=== PATIENT | female | born 1970 | race Caucasian/White ===

== ENCOUNTER → 2018-06-06 08:13 | Outpatient (CLI) | payer OTHER, SELFPAY ==
--- NOTE | 2018-06-06 08:16 | BI_ITS ---
MAMMOGRAPHY - BILATERAL SCREENING REASON FOR EXAM: Female, 48 years old. Routine annual screening examination. PERTINENT HISTORY: Grandmother with breast cancer. TECHNIQUE: Digital bilateral breast brandon (3D mammographic acquisition) in the CC and MLO projections. 2-D mediolateral oblique (MLO) and craniocaudad (CC) views of both breasts were obtained. CAD: Full Field Digital Mammography with Computer Added Detection was performed. COMPARISON: Comparison is made with prior examination dated January 24, 2017 and November 15, 2015. FINDINGS: Breast Composition: The breasts are extremely dense, which lowers the sensitivity of mammography. There are no dominant masses or suspicious calcifications. No other significant abnormalities are identified. There has been no significant change since the prior study. BI/SCREENING MAMM (CAD), BILAT IMPRESSION: Stable bilateral screening mammogram. Yearly follow-up mammogram recommended. (A) ASSESSMENT CATEGORY: BIRADS Category 1: Negative. A letter regarding these results will be sent to the patient by the facility within 30 days. Approximately 10% of breast cancers are not detected by mammography. A normal mammogram should not delay biopsy of a clinically suspicious abnormality. [id number] Electronically Signed: Rafael Mueller MD at 10:17 EST Tel [phone], Service support ,
--- OUTSIDE RECORDS SUMMARY | 2018-08-01 08:03 | XMS RPT_ITS ---
:1970 Author Organization [facility] Care Team Providers Name Role Phone Sarah Mcrae Attending Unavailable Sarah Mcrae Referring Unavailable Bora Quintanilla Primary Care Unavailable Referred, Self Attending Unavailable Bora Quintanilla Primary Care Unavailable PROBLEMS PROBLEMS No Problem Records FoundPROCEDURES PROCEDURES No Procedure Records FoundRESULTS RESULTS SCREENING MAMM (CAD), Observed: 06/06/2018 Status: F Source: [facility] 8:16 AM [facility] REPOSITORY [facility] [address] [place] [address] SCREENING MAMM (CAD), BILAT MR#: [id number] Acct: [id number] Name: JENIFER GAN Rep #: [id number] : 1970 F 48 From: Rafael Mueller MD PCP: Bora Quintanilla MD Status: REG CLI Study: SCREENING MAMM (CAD), BILAT Date of Exam: 06/06/18 Exam# [id number] Ordering Dr: Sarah Mcrae MD MAMMOGRAPHY - BILATERAL SCREENING REASON FOR EXAM: Female, 48 years old. Routine annual screening examination. PERTINENT HISTORY: Grandmother with breast cancer. TECHNIQUE: Digital bilateral breast brandon (3D mammographic acquisition) in the CC and MLO projections. 2-D mediolateral oblique (MLO) and craniocaudad (CC) views of both breasts were obtained. CAD: Full Field Digital Mammography with Computer Added Detection was performed. COMPARISON: Comparison is made with prior examination dated January 24, 2017 and November 15, 2015. FINDINGS: Breast Composition: The breasts are extremely dense, which lowers the sensitivity of mammography. There are no dominant masses or suspicious calcifications. No other significant abnormalities are identified. There has been no significant change since the prior study. BI/SCREENING MAMM (CAD), BILAT IMPRESSION: Stable bilateral screening mammogram. Yearly follow-up mammogram recommended. (A) ASSESSMENT CATEGORY: BIRADS Category 1: Negative. A letter regarding these results will be sent to the patient by the facility within 30 days. Approximately 10% of breast cancers are not detected by mammography. A normal mammogram should not delay biopsy of a clinically suspicious abnormality. [id number] Electronically Signed: Rafael Mueller MD at 10:17 EST Tel [phone], Service support , CC: Sarah Mcrae MD; Bora Quintanilla MD Sap Consultant: Signed ALLERGIES ALLERGIES No Allergies Records FoundENCOUNTERS ENCOUNTERS ADMIT/DISCHARGE ACCOUNT ADMITTING ENCOUNTER LOCATION SOURCE NUMBER CLASS 06/12/2018 [id number] [facility] [place] 0 [facility] ing:MASS Repository 06/06/2018 [id number] [facility] [place] [facility] ing:OPBI Repository PAYERS PAYERS ENCOUNTER GUARANTOR PAYER SUBSCRIBER SOURCE 06/12/2018 CARIDAD [facility] NOT GIVENUNK [place] [id number] Insurance:SELF PAY [facility] [id number]: Number: Effective Repository Date:2018-05-28 () 06/06/2018 CARIDAD Arreg[facility] Primary CARIDAD [id number] Insurance:SUMMA KATHYOB: [facility] [place] [facility]: [id number] [id number]: [id number] Repository Date:[id number] [address]TQ: 06/06/2018 Secondary NOT GIVENBHAVIN [place] Insurance:SELF PAY [facility] Number: Effective Repository Date:2017-11-16
== END ==
PROVIDERS: Family Provider Family Medicine; PCP Family Medicine; Referring Provider Obstetrics & Gynecology; Visit Provider Obstetrics & Gynecology
DX: Z12.31 Encounter for screening mammogram for malignant neoplasm of breast (principal)
CPT/HCPCS: 77063; 77067

== ENCOUNTER → 2018-11-28 | Outpatient (CLI) | payer OTHER, SELFPAY ==
[2018-11-28 07:57] LABS: Hematocrit 40.9 % (37-47); Hemoglobin 13.7 g/dl (12.0-15.0); Mean Corp Hgb Conc 33.5 g/gl (32-36); Mean Corpuscular Hgb 28.8 pg (27.0-32.0); Mean Corpuscular Volume 86.1 fL (81-99); Mean Platelet Vol. 10.1 fl (6.2-12.0); Platelet Count 239 K/mm3 (150-450); RBC Distribution Width CV 12.1 % (11.6-14.6); RBC Distribution Width SD 38.1 fl (35.1-43.9); Red Blood Count 4.75 M/mm3 (4.2-5.4); White Blood Count 5.8 K/mm3 (4.4-11.0)
[2018-11-28 07:59] LABS: Scan Indicated on CBC? Y/N NO
[2018-11-28 08:08] LABS: Hemoglobin A1c 5.4 % (4.2-6.3)
[2018-11-28 08:23] LABS: Cholesterol 211 mg/dL (200); Estradiol < 11.0 pg/mL; Free T3 2.6 pg/mL (2.18-3.98); Glucose 79 mg/dL (74-106); High Density Lipoprotein 115 mg/dL; T4 Free Direct 0.77 ng/dL (0.76-1.46); Thyroid Stim Hormone (TSH) 1.46 uIU/mL (0.358-3.74); Triglycerides 59 mg/dL; Very Low Density Lipoprotein 12 mg/dL (5-40)
[2018-11-29 10:11] LABS: DHEA Sulfate 151.4 ug/dL (41.2-243.7)
== END | disposition home or self-care (01) ==
LOC: LAB.FUTURE 07:12
PROVIDERS: Family Provider Family Medicine; PCP Family Medicine; Referring Provider Obstetrics & Gynecology; Visit Provider Obstetrics & Gynecology
DX: R53.83 Other fatigue (principal)
CPT/HCPCS: 36415; 80061; 82306; 82533; 82627; 82670; 82947; 83036; 83525; 84144; 84403; 84439; 84443; 84481; 85027; 82626

== ENCOUNTER → 2020-04-07 09:26 | Outpatient (CLI) | payer OTHER, SELFPAY ==
[2020-04-07 10:43] LABS: Anion Gap 2 (5-15); BUN 19 mg/dL (7-18); BUN/Creat Ratio 21.3 RATIO (10-20); Calcium,Total 8.9 mg/dL (8.5-10.1); Chloride 106 mmol/L (98-107); Cholesterol 208 mg/dL (200); Creatinine, Serum 0.89 mg/dL (0.55-1.02); EST Glomerular Filtration Rate 71 mL/min (>60); Est Glom Filt Rate - Afr Amer 86 mL/min (>60); Glucose 80 mg/dL (74-106); High Density Lipoprotein 101 mg/dL; Potassium 3.8 mmol/L (3.5-5.1); Sodium Level 139 mmol/L (136-145); Thyroid Stim Hormone (TSH) 1.29 uIU/mL (0.358-3.74); Triglycerides 77 mg/dL; Very Low Density Lipoprotein 15 mg/dL (5-40)
[2020-04-07 10:52] LABS: Vitamin D,25 Hydroxy 42.2 ng/mL
== END ==
PROVIDERS: PCP Family Medicine; Referring Provider Family Medicine; Visit Provider Family Medicine
DX: Z00.00 Encounter for general adult medical examination without abnormal findings (principal); E55.9 Vitamin D deficiency, unspecified; Z13.220 Encounter for screening for lipoid disorders
CPT/HCPCS: 36415; 80048; 80061; 82306; 84443

== ENCOUNTER → 2020-09-22 13:40 | Outpatient (CLI) | payer OTHER, SELFPAY ==
--- NOTE | 2020-09-22 13:41 | BI_ITS ---
MAMMOGRAPHY - BILATERAL SCREENING REASON FOR EXAM: Female, 50 years old. Routine annual screening examination. PERTINENT HISTORY: Grandmother with breast cancer. TECHNIQUE: Digital bilateral breast haroldo (3D mammographic acquisition) in the CC and MLO projections. 2-D mediolateral oblique (MLO) and craniocaudad (CC) views of both breasts were obtained. CAD: Full Field Digital Mammography with Computer Added Detection was performed. COMPARISON: Comparison is made with prior study dated 06/06/2018 and 01/24/2017. FINDINGS: Breast Composition: The breasts are extremely dense, which lowers the sensitivity of mammography. There are no dominant masses or suspicious calcifications. No other significant abnormalities are identified. There has been no significant change since the prior study. BI/SCRN MAMM (CAD)W/HAROLDO BILAT IMPRESSION: Stable bilateral screening mammogram. Yearly follow-up mammogram recommended. (A) ASSESSMENT CATEGORY: BIRADS Category 1: Negative. A letter regarding these results will be sent to the patient by the facility within 30 days. Approximately 10% of breast cancers are not detected by mammography. A normal mammogram should not delay biopsy of a clinically suspicious abnormality. [id number] Electronically Signed: Rafael Mueller MD at 14:50 EDT , Service support ,
== END ==
PROVIDERS: PCP Family Medicine; Referring Provider Family Medicine; Visit Provider Family Medicine
DX: Z00.00 Encounter for general adult medical examination without abnormal findings (principal); Z12.31 Encounter for screening mammogram for malignant neoplasm of breast
CPT/HCPCS: 77063; 77067

== ENCOUNTER 2020-09-23 16:58 | Outpatient (RCR) | payer OTHER, SELFPAY ==
[2020-09-23] MEDS: COVID-19 VACC, MRNA(PFIZER)/PF 30 MCG/0.3 ML SYRINGE IM (14:52)
[2020-10-14] MEDS: COVID-19 VACC, MRNA(PFIZER)/PF 30 MCG/0.3 ML SYRINGE IM (14:35)
== END 2020-09-23 23:59 ==
LOC: IMMUN 16:58
PROVIDERS: PCP Family Medicine; Visit Provider Family Medicine
DX: Z23 Encounter for immunization (principal)
CPT/HCPCS: 0001A; 0002A; 91300

== ENCOUNTER → 2021-02-25 | Outpatient (CLI) | payer OTHER, SELFPAY ==
[2021-03-01 16:51] LABS: HPV APTIMA, High Risk Negative (Negative)
== END | disposition home or self-care (01) ==
LOC: LABSPEC 15:32
PROVIDERS: PCP Family Medicine; Referring Provider Obstetrics & Gynecology; Visit Provider Obstetrics & Gynecology
DX: Z12.4 Encounter for screening for malignant neoplasm of cervix (principal)
CPT/HCPCS: 87624; 88175; G0145

== ENCOUNTER → 2022-04-25 | Outpatient (CLI) | payer OTHER, SELFPAY | END | disposition home or self-care (01) | LOC: LABSPEC 15:29 | PROVIDERS: PCP Family Medicine; Referring Provider Nurse Practitioner Women's Health; Visit Provider Nurse Practitioner Women's Health | DX: R30.0 Dysuria (principal) | CPT/HCPCS: 87086; 87088; 87186 ==

== ENCOUNTER → 2022-04-26 | Outpatient (CLI) | payer OTHER, SELFPAY ==
[2022-04-26 15:55] LABS: Absolute Lymphocyte Count 2.66 X10^3/uL (0.83-4.51); Absolute Neutrophil Count 4.8 X10^3/uL (2.0-7.7); Basophil# 0.03 X10^3/uL; Basophil% 0.4 % (0-1); Eosinophil# 0.28 X10^3/uL; Eosinophils% 3.3 % (0-5); Hematocrit 37.8 % (37-47); Hemoglobin 12.6 g/dL (12.0-15.0); Lymphocyte # 2.66 X10^3/ul (0.83-4.51); Lymphocyte % 31.3 % (19-41); Mean Corp Hgb Conc 33.3 g/dL (32-36); Mean Corpuscular Hgb 29.6 pg (27.0-32.0); Mean Corpuscular Volume 88.9 fL (81-99); Mean Platelet Vol. 9.8 fl (6.2-12.0); Monocyte# 0.69 X10^3/uL; Monocyte% 8.1 % (0-10); NRBC Flagged by Analyzer 0 % (0-5); Neutrophil # 4.81 X10^3/uL (2.7-7.7); Neutrophil % 56.5 % (47-70); Platelet Count 273 K/mm3 (150-450); RBC Distribution Width CV 12.1 % (11.6-14.6); RBC Distribution Width SD 39.2 fl (35.1-43.9); Red Blood Count 4.25 M/mm3 (4.2-5.4); White Blood Count 8.5 K/mm3 (4.4-11.0)
[2022-04-26 16:08] LABS: International Normalized Ratio 0.9; Prothrombin Time (Protime)PT. 12.1 SECONDS (11.7-14.9)
== END | disposition home or self-care (01) ==
LOC: LAB 15:11
PROVIDERS: PCP Family Medicine; Referring Provider Family Medicine; Visit Provider Family Medicine
DX: T14.8XXA Other injury of unspecified body region, initial encounter (principal)
CPT/HCPCS: 36415; 85025; 85610; 85730

== ENCOUNTER → 2022-10-06 | Outpatient (CLI) | payer OTHER, SELFPAY ==
--- NOTE | 2022-10-06 13:25 | BI_ITS ---
MAMMOGRAPHY - BILATERAL SCREENING REASON FOR EXAM: Female, 52 years old. Routine annual screening examination. PERTINENT HISTORY: Grandmother with breast cancer. TECHNIQUE: Digital bilateral breast haroldo (3D mammographic acquisition) in the CC and MLO projections. 2-D mediolateral oblique (MLO) and craniocaudad (CC) views of both breasts were obtained. CAD: Full Field Digital Mammography with Computer Added Detection was performed. COMPARISON: Comparison is made with prior study of September 22, 2020 and June 06, 2018. FINDINGS: Breast Composition: The breasts are extremely dense, which lowers the sensitivity of mammography. There are no dominant masses or suspicious calcifications. No other significant abnormalities are identified. There has been no significant change since the prior study. BI/SCRN MAMM (CAD)W/HAROLDO BILAT IMPRESSION: Stable bilateral screening mammogram. Yearly follow-up mammogram recommended. (A) ASSESSMENT CATEGORY: BIRADS Category 1: Negative. A letter regarding these results will be sent to the patient by the facility within 30 days. Approximately 10% of breast cancers are not detected by mammography. A normal mammogram should not delay biopsy of a clinically suspicious abnormality. [id number] Electronically Signed: Rafael Mueller MD at 14:37 EDT ,
== END | disposition home or self-care (01) ==
PROVIDERS: PCP Family Medicine; Visit Provider Obstetrics & Gynecology
DX: Z12.31 Encounter for screening mammogram for malignant neoplasm of breast (principal); Z80.3 Family history of malignant neoplasm of breast; N39.0 Urinary tract infection, site not specified
CPT/HCPCS: 77063; 77067; 87086; 87088

== ENCOUNTER → 2023-05-17 | Outpatient (CLI) | payer OTHER, SELFPAY ==
[2023-05-17 06:59] LABS: Hematocrit 41.9 % (37-47); Hemoglobin 13.3 g/dL (12.0-15.0); Mean Corp Hgb Conc 31.7 g/dL (32-36); Mean Corpuscular Hgb 28.5 pg (27.0-32.0); Mean Corpuscular Volume 89.9 fL (81-99); Mean Platelet Vol. 10.2 fl (6.2-12.0); Platelet Count 237 K/mm3 (150-450); RBC Distribution Width SD 39.8 fl (35.1-43.9); Red Blood Count 4.66 M/mm3 (4.2-5.4); White Blood Count 6.4 K/mm3 (4.4-11.0)
[2023-05-17 07:33] LABS: ALB/GLOB Ratio 1.2 RATIO (0.9-2.4); AST(SGOT) 21 U/L (15-37); Alanine Aminotransfer ALT/SGPT 22 U/L (13-56); Albumin, Serum 3.9 g/dL (3.2-5.0); Alkaline Phosphatase 58 U/L (45-117); Anion Gap 3 (5-15); BUN 20 mg/dL (7-18); BUN/Creat Ratio 21.5 RATIO (10-20); Calcium,Total 8.8 mg/dL (8.5-10.1); Chloride 107 mmol/L (98-107); Cholesterol 226 mg/dL (200); Creatinine, Serum 0.93 mg/dL (0.55-1.02); EST Glomerular Filtration Rate 67 mL/min (>60); Est Glom Filt Rate - Afr Amer 81 mL/min (>60); Ferritin 73 ng/mL (8-252); Globulin 3.2 g/dL (2.2-4.2); Glucose 86 mg/dL (74-106); High Density Lipoprotein 117 mg/dL; Potassium 3.9 mmol/L (3.5-5.1); Protein, Total 7.1 g/dL (6.4-8.2); Sodium Level 139 mmol/L (136-145); Thyroid Stim Hormone (TSH) 1.81 uIU/mL (0.358-3.74); Triglycerides 70 mg/dL; Very Low Density Lipoprotein 14 mg/dL (5-40)
[2023-05-17 08:14] LABS: Vitamin D,25 Hydroxy 52.8 ng/mL
== END | disposition home or self-care (01) ==
LOC: LAB 06:20
PROVIDERS: PCP Family Medicine; Referring Provider Family Medicine; Visit Provider Family Medicine
DX: Z00.00 Encounter for general adult medical examination without abnormal findings (principal); E55.9 Vitamin D deficiency, unspecified; Z13.29 Encounter for screening for other suspected endocrine disorder
CPT/HCPCS: 36415; 80053; 80061; 82306; 82728; 84443; 85027

== ENCOUNTER → 2023-07-17 | Outpatient (CLI) | payer OTHER, SELFPAY ==
--- NOTE | 2023-07-17 08:20 | BD_ITS ---
STUDY: DUAL ENERGY X-RAY ABSORPTIOMETRY / DXA REASON FOR EXAM: Female, 53 years old. [id number] TECHNIQUE: Bone Mineral Density (BMD) measurements of lumbar spine and bilateral hips were obtained. COMPARISON: None. FINDINGS: Lumbar Spine (L1-L4): g/cm2 (0.799) / T-score (-2.3) / Z-score (-1.3) Findings are suggestive of osteopenia with a high fracture risk. Left Femur Total: g/cm2 (0.810) / T-score (-1.1) / Z-score (-0.5) Left Femoral Neck: g/cm2 (0.656) / T-score (-1.7) / Z-score (-0.8) Right Femur Total: g/cm2 (0.810) / T-score (-1.1) / Z-score (-0.5) Right Femoral Neck: g/cm2 (0.668) / T-score (-1.6) / Z-score (-0.7) BD/Dexa Bone Density Study IMPRESSION: The patient is considered osteopenic as outlined below according to World Henry Organization (WHO) criteria with a high fracture risk. Reference Information: The T-score is the number of standard deviations above or below the standard which is normal for young adults at their peak bone mineral density. The World Health Organization (WHO) interprets the T-scores as follows: Above -1 Normal bone density Between -1 and -2.5 Osteopenia Equal to / or below -2.5 Osteoporosis As a practical clinical guideline, osteopenia may be graded as follows: Mild -1 through -1.5 Moderate -1.6 through -2.0 Severe -2.1 through -2.4 The Z-score is the number of standard deviations above or below age-matched controls. A Z-score of less than -1.5 would be considered abnormal. References: 1. NIH Osteoporosis and Related Bone Diseases www osteo.org 2. International Society for Clinical Densitometry www iscd.org 3. National Osteoporosis Foundation www nof.org Electronically Signed: Rafael Mueller MD at 15:29 EST ,
--- OUTSIDE RECORDS SUMMARY | 2023-07-17 08:39 | XMS RPT_ITS | CCD ---
Author Name Unknown Address [address] [place] [address] Organization [facility] Care Team Providers Care Caster Helper Name Role Phone Tierra Valencia MD Primary Care Provider CARMEN CARMONA Primary Care Unavailable TIERRA VALENCIA Primary Care Unavailabl e TIERRA VALENCIA Primary Care Unavailmarino e Medications Current Medications Medication Drug Class(es) Dates Sig (Normalized) Sig (Original) fluconazole 150 mg oral tablet (1 source) Azole Antifungal Start: 09-24-2022 End: 09-24-2022 fluconazole (DIFLUCAN) 150 mg tablet Indications: Acute UTI Take 1 tablet by mouth one time only for 1 dose. Repeat in 3 days as needed. 2 tablet 0 09/24/2022 09/24/2022 Active Completed/Discontinued Medications Medication Drug Class(es) Dates Sig (Normalized) Sig (Original) Biotin (5 sources) BIOTIN ORAL Take by mouth. 0 Active Problems Active Problems Problem Classification Problem Date Documented Da te Episodic/Chronic Genitourinary symptoms and ill-defined conditions (2 sources) Increased frequency of urination; Translations: [Frequency of micturition] Episodic Urinary tract infections (2 sources) Acute cystitis; Translations: [Acute cystitis with hematuria] Episodic Past or Other Problems Problem Classification Problem Date Documented Da te Episodic/Chronic Other and unspecified benign neoplasm (5 sources) Benign neoplasm of skin; Translations: [Other benign neoplasm of skin, unspecified] Onset: 03-08-2009 03-08-2009 Episodic Results Test Name Value Interpretation Reference Range Facil ity Vital Signs Date Time Vital Sign Value Performing Clinician Faci lity 09-24-2022 11:43-0400 Body temperature 98.01 [degF] Jessie Holt PA-C Work Phone: [facility] 09-24-2022 11:43-0400 Body weight 63.5 kg Jessie Athy PA-C Work Phone: [facility] 09-24-2022 11:43-0400 Diastolic blood pressure 62 mm[Hg] Jessie Athy PA-C Work Phone: [facility] 09-24-2022 11:43-0400 Heart rate 75 /min Jessie Athy PA-C Work Phone: [facility] 09-24-2022 11:43-0400 Respiratory rate 18 /min Jessie Athy PA-C Work Phone: [facility] 09-24-2022 11:43-0400 SaO2% (BldA) [Mass fraction] 99 % Jessie Athy PA-C Work Phone: [facility] 09-24-2022 11:43-0400 Systolic blood pressure 112 mm[Hg] Jessie Athy PA-C Work Phone: [facility] 07-17-2022 08:02-0500 Body temperature 97.2 [degF] Antonieta Gonzalez APRN.PRIMARY SCHOOL PRINCIPAL Work Phone: [facility] 07-17-2022 08:02-0500 Body weight 66.59 kg Antonieta Gonzalez APRN.PRIMARY SCHOOL PRINCIPAL Work Phone: [facility] 07-17-2022 08:02-0500 Diastolic blood pressure 60 mm[Hg] Antonieta Gonzalez APRN.PRIMARY SCHOOL PRINCIPAL Work Phone: [facility] 07-17-2022 08:02-0500 Heart rate 62 /min Antonieta Gonzalez APRN.PRIMARY SCHOOL PRINCIPAL Work Phone: [facility] 07-17-2022 08:02-0500 Respiratory rate 16 /min Antonieta Gonzalez APRN.PRIMARY SCHOOL PRINCIPAL Work Phone: [facility] 07-17-2022 08:02-0500 SaO2% (BldA) [Mass fraction] 97 % Antonieta Gonzalez APRN.PRIMARY SCHOOL PRINCIPAL Work Phone: [facility] 07-17-2022 08:02-0500 Systolic blood pressure 102 mm[Hg] Antonieta Gonzalez APRN.PRIMARY SCHOOL PRINCIPAL Work Phone: [facility] 05-19-2022 12:07-0500 Body temperature 96.8 [degF] Melody Praisler-Wood SANDBLASTER SUPERVISOR.PRIMARY SCHOOL PRINCIPAL Work Phone: [facility] 05-19-2022 12:07-0500 Body weight 63.87 kg Melody Praisler-Wood SANDBLASTER SUPERVISOR.PRIMARY SCHOOL PRINCIPAL Work Phone: [facility] 05-19-2022 12:07-0500 Diastolic blood pressure 80 mm[Hg] Melody Praisler-Wood SANDBLASTER SUPERVISOR.PRIMARY SCHOOL PRINCIPAL Work Phone: [facility] 05-19-2022 12:07-0500 Heart rate 73 /min Melody Praisler-Wood SANDBLASTER SUPERVISOR.PRIMARY SCHOOL PRINCIPAL Work Phone: [facility] 05-19-2022 12:07-0500 Respiratory rate 21 /min Melody Praisler-Wood SANDBLASTER SUPERVISOR.PRIMARY SCHOOL PRINCIPAL Work Phone: [facility] 05-19-2022 12:07-0500 SaO2% (BldA) [Mass fraction] 99 % Melody Praisler-Wood SANDBLASTER SUPERVISOR.PRIMARY SCHOOL PRINCIPAL Work Phone: [facility] 05-19-2022 12:07-0500 Systolic blood pressure 110 mm[Hg] Melody Praisler-Wood SANDBLASTER SUPERVISOR.PRIMARY SCHOOL PRINCIPAL Work Phone: [facility] Encounters Encounter Date Encounter Type Care Provider Facility Start: 09-25-2022 Telephone encounter Terrence Pool MD Work Phone: [facility] Procedures Date Procedure Procedure Detail Performing Clinician Start: 09-24-2022 Urnls dip stick/tabl et rgnt auto w/o microscopy [facility] Provider Start: 07-17-2022 Urnls dip stick/tabl et rgnt auto w/o microscopy Antonieta Gonzalez APRN.PRIMARY SCHOOL PRINCIPAL Work Phone: Start: 05-19-2022 Urnls dip stick/tabl et rgnt auto w/o microscopy Jessie Holt PA-C Work Phone: Plan of Treatment Date Care Activity Detail Author Start: 07-09-2022 DEPRESSION ASSESSMENT DEPRESSION ASSESSMENT [facility] Start: 08-05-2021 COVID-19 VACCINE (4 - Booster for Pfizer series) COVID-19 VACCINE (4 - Booster for Pfizer series) [facility] Start: 07-09-2021 DEPRESSION ASSESSMENT DEPRESSION ASSESSMENT [facility] Start: 02-12-2020 SHINGRIX VACCINE (1 of 2) SHINGRIX VACCINE (1 of 2) [facility] Start: 2015 COLOGUARD (FIT-DNA) COLOGUARD (FIT-DNA) [facility] Start: 2015 Colonoscopy COLONOSCOPY [facility] Start: 2015 COLORECTAL CANCER SCREENING COLORECTAL CANCER SCREENING [facility] Start: [address] COLONOGRAPHY [facility] Start: 2015 DIABETES SCREEN DIABETES SCREEN [facility] Start: 2015 FECAL OCCULT BLOOD FECAL OCCULT BLOOD [facility] Start: 2015 LIPID SCREEN LIPID SCREEN [facility] Start: 2015 SIGMOIDOSCOPY SIGMOIDOSCOPY [facility] Start: 05-24-2010 HPV TESTING HPV TESTING [facility] Start: 05-24-2010 PAP TESTING PAP TESTING [facility] Start: 2010 Mammography MAMMOGRAM [facility] Start: 1989 Urine microalbumin profile DTAP,TDAP,TD (1 - Tdap) [facility] Start: 02-12-1988 HEPATITIS C SCREENING HEPATITIS C SCREENING [facility] Start: 02-12-1988 HIV SCREENING HIV SCREENING [facility] Start: 1970 HEPATITIS B (1 of 3 - 3-dose series) HEPATITIS B (1 of 3 - 3-dose series) [facility] Bacteria identified in Urine by Culture URINE CULTURE Microbiology Routine Urinary frequency 05/19/2022 1:14 PM EST [facility] Work Phone: Bacteria identified in Urine by Culture URINE CULTURE Microbiology Routine Urinary frequency Ordered: 07/17/2022 [facility] Work Phone: Immunizations Immunization Date Immunization Notes Care Provider Carlos Eduardo worthy 05-25-2017 influenza, injectabl e, quadrivalent, contains preservative Melody Drew APRN.CNP Work Phone: [facility] Work Phone: 04-26-2016 influenza, injectabl e, quadrivalent, contains preservative Melodyalicia Drew APRN.[facility] Work Phone: [facility] 04-23-2009 influenza virus vaccine, live, attenuated, for intranasal use Melody Drew APRN.PRIMARY SCHOOL PRINCIPAL Work Phone: [facility] 05-23-2007 influenza virus vaccine, unspecified formulation Melodyalicia Drew APRN.PRIMARY SCHOOL PRINCIPAL Work Phone: [facility] Work Phone: Payers Date Payer Category Payer Unknown [id number] 2003 Unknown [id number] Social History Date Type Detail Facility Start: 05-19-2022 Tobacco smoking status NHIS Never smoked tobacco [facility] Start: 05-19-2022 Tobacco use and exposure Smokeless tobacco non-user [facility] Start: 05-19-2022 End: 09-24-2022 Alcohol intake Current non-drinker of alcohol (finding) [facility] Start: 1970 Sex Assigned At Not on file [facility] NEGATED: Highlighted rowStart: NINF History of tobacco use Passive smoker [facility] Clinical Notes 05-19-2022 to 09-27-2022 Telephone Encounter - Cheli Rae LPN - 09/27/2022 6:58 PM EDTTelephone Encounter - Karmen Rodriguez - 09/26/2022 7:25 AM EDTTelephone Encounter - Terrence Maradiaga MD - 09/25/2022 5:14 PM EDT Note Date & Type Note Facility 09-27-2022 Miscellaneous Notes Still unable to reach patient so left message with negative results and recommendations.Cheli Rae LPN Left message for patient to return call. Karmen Rodriguez Urine culture did not show an infection. Finish antibiotic and follow up with PCP, urology, or SENIOR PROGRAM ANALYST if symptoms persist. documented in this encounter [facility] 09-24-2022 Note HNO ID: [id number] Author: Jessie Holt PA-C Service: ? Author Type: Physician Waxer Tender Type: Progress Notes Filed: 09/24/2022 12:56 PM Note Text: This note was created using Juristat. Subjective Christie Carrera PHD is a 52 year old female. HPI Presents with urinary frequency and dysuria over the past couple days. She states she has been getting UTIs after sex recently and will be following up with her women's health provider. She has had some vaginal itching, no discharge. No new sexual partners. She denies back pain or abdominal pain. Denies blood in the urine. Review of Systems HENT: Negative. Respiratory: Negative. Gastrointestinal: Negative for abdominal pain, diarrhea, nausea and vomiting. Genitourinary: Positive for dysuria, frequency and urgency. Negative for hematuria, pelvic pain, vaginal bleeding, vaginal discharge and vaginal pain. Musculoskeletal: Negative for back pain. All other systems reviewed and are negative. PAST MEDICAL HISTORY Diagnosis Date PMH - PAST MEDICAL HISTORY OF excessive fatigue Current Outpatient Medications Medication Sig Dispense Refill BIOTIN ORAL Take by mouth. CALCIUM CITRATE-VITAMIN D2 1,500 MG-200 UNIT TAB 0 nitrofurantoin monohydrate and macrocrystal (MACROBID) 100 mg capsule Take 1 capsule by mouth twice daily with meals for 5 days. 10 capsule 0 fluconazole (DIFLUCAN) 150 mg tablet Take 1 tablet by mouth one time only for 1 dose. Repeat in 3 days as needed. 2 tablet 0 No current facility-administered medications for this visit. PAST SURGICAL HISTORY Procedure Laterality Date NONE FAMILY HISTORY Problem Relation Age of Onset Heart Maternal Grandfather other (diabetes [Other]) Other uncle Breast Cancer Other grandmother other (lung cancer [Other]) Other grandfather Heart Father defective valve other (Other [Other]) Mother auto immune disease Social History Tobacco Use Smoking status: Never Passive exposure: Never Smokeless tobacco: Never Substance Use Topics Alcohol use: No Objective BP 112/62 Pulse 75 Temp 36.7 ?C (98 ?F) (Tympanic) Resp 18 Wt 63.5 kg (140 lb) LMP (LMP Unknown) SpO2 99% Physical Exam Vitals reviewed. Constitutional: Appearance: Normal appearance. HENT: Head: Normocephalic and atraumatic. Cardiovascular: Rate and Rhythm: Normal rate and regular rhythm. Heart sounds: Normal heart sounds. Pulmonary: Effort: Pulmonary effort is normal. Breath sounds: Normal breath sounds. Abdominal: General: Abdomen is flat. There is no distension. Palpations: Abdomen is soft. Tenderness: There is no abdominal tenderness. There is no right CVA tenderness, left CVA tenderness or guarding. Skin: General: Skin is warm and dry. Neurological: Mental Status: She is alert. Assessment and Plan ASSESSMENT/PLAN: 1. Acute UTI - ICD9: 599.0, ICD10: N39.0 acute - UA positive for izabela esterase and hematuria - Send urine for culture - Begin treatment with Macrobid 100 mg BID for 5 days -Patient concern for developing a yeast infection [place] I did send Diflucan in case the symptoms began. - UA DIP, URINE (POC) - NITROFURANTOIN MONOHYDRATE AND MACROCRYSTAL 100 MG ORAL CAP - FLUCONAZOLE 150 MG TABLET Jessie Holt PA-C [facility] 09-24-2022 Miscellaneous Notes Addended by: MANUEL CARLISLE LPN on: 09/24/2022 01:44 PM Modules accepted: Orders documented in this encounter [facility] 09-24-2022 History of Presen t illness Narrative This note was created using Cortexater. Subjective Christie Redd Deandre PHD is a 52 year old female. HPI Presents with urinary frequency and dysuria over the past couple days. She states she has been getting UTIs after sex recently and will be following up with her women's health provider. She has had some vaginal itching, no discharge. No new sexual partners. She denies back pain or abdominal pain. Denies blood in the urine. Review of Systems HENT: Negative. Respiratory: Negative. Gastrointestinal: Negative for abdominal pain, diarrhea, nausea and vomiting. Genitourinary: Positive for dysuria, frequency and urgency. Negative for hematuria, pelvic pain, vaginal bleeding, vaginal discharge and vaginal pain. Musculoskeletal: Negative for back pain. All other systems reviewed and are negative. PAST MEDICAL HISTORY Diagnosis Date PMH - PAST MEDICAL HISTORY OF excessive fatigue Current Outpatient Medications Medication Sig Dispense Refill BIOTIN ORAL Take by mouth. CALCIUM CITRATE-VITAMIN D2 1,500 MG-200 UNIT TAB 0 nitrofurantoin monohydrate and macrocrystal (MACROBID) 100 mg capsule Take 1 capsule by mouth twice daily with meals for 5 days. 10 capsule 0 fluconazole (DIFLUCAN) 150 mg tablet Take 1 tablet by mouth one time only for 1 dose. Repeat in 3 days as needed. 2 tablet 0 No current facility-administered medications for this visit. PAST SURGICAL HISTORY Procedure Laterality Date NONE FAMILY HISTORY Problem Relation Age of Onset Heart Maternal Grandfather other (diabetes [Other]) Other uncle Breast Cancer Other grandmother other (lung cancer [Other]) Other grandfather Heart Father defective valve other (Other [Other]) Mother auto immune disease Social History Tobacco Use Smoking status: Never Passive exposure: Never Smokeless tobacco: Never Substance Use Topics Alcohol use: No Objective BP 112/62 Pulse 75 Temp 36.7 C (98 F) (Tympanic) Resp 18 Wt 63.5 kg (140 lb) LMP (LMP Unknown) SpO2 99% Physical Exam Vitals reviewed. Constitutional: Appearance: Normal appearance. HENT: Head: Normocephalic and atraumatic. Cardiovascular: Rate and Rhythm: Normal rate and regular rhythm. Heart sounds: Normal heart sounds. Pulmonary: Effort: Pulmonary effort is normal. Breath sounds: Normal breath sounds. Abdominal: General: Abdomen is flat. There is no distension. Palpations: Abdomen is soft. Tenderness: There is no abdominal tenderness. There is no right CVA tenderness, left CVA tenderness or guarding. Skin: General: Skin is warm and dry. Neurological: Mental Status: She is alert. Assessment and Plan ASSESSMENT/PLAN: 1. Acute UTI - ICD9: 599.0, ICD10: N39.0 acute - UA positive for izabela esterase and hematuria - Send urine for culture - Begin treatment with Macrobid 100 mg BID for 5 days -Patient concern for developing a yeast infection and [place]. I did send Diflucan in case the symptoms began. - UA DIP, URINE (POC) - NITROFURANTOIN MONOHYDRATE & MACROCRYSTAL 100 MG ORAL CAP - FLUCONAZOLE 150 MG TABLET Jessie Holt PA-C documented in this encounter [facility] 07-17-2022 Note HNO ID: [id number] Author: Antonieta Gonzalez APRN.PRIMARY SCHOOL PRINCIPAL Service: ? Author Type: Nurse Practitioner Type: Progress Notes Filed: 07/17/2022 8:14 AM Note Text: CC: Patient presents with: Urinary Frequency: burning with urination x 1 week HPI Christie Carrera PHD is a 52 year old female who presents with complaint of possible UTI. These symptoms have been present for 7 days. Associated symptoms: burning and frequency Denies: backpain, fever, chills, sweats, abdominal pain, and flank pain Treatments: nothing The ROS was otherwise negative. PMH, Medications, labs, allergies, and recent past visits with PCP were reviewed and updated as able. PHYSICAL EXAM: BP 102/60 Pulse 62 Temp 36.2 ?C (97.2 ?F) Resp 16 Wt 66.6 kg (146 lb 12.8 oz) LMP 06/04/2006 SpO2 97% General: Well appearing and alert CV: Regular rate and rhythm without obvious murmur Lungs: clear to auscultation bilaterally Back: straight and symmetric Abdomen: soft, nontender, nondistended PAST MEDICAL HISTORY Diagnosis Date PMH - PAST MEDICAL HISTORY OF excessive fatigue PAST SURGICAL HISTORY Procedure Laterality Date NONE ALLERGIES Patient has no known allergies. MEDICATIONS BIOTIN ORAL Take by mouth. CALCIUM CITRATE-VITAMIN D2 1,500 MG-200 UNIT TAB FAMILY HISTORY Problem Relation Age of Onset Heart Maternal Grandfather other (diabetes [Other]) Other uncle Breast Cancer Other grandmother other (lung cancer [Other]) Other grandfather Heart Father defective valve other (Other [Other]) Mother auto immune disease Social History Tobacco Use Smoking status: Never Passive exposure: Never Smokeless tobacco: Never Substance Use Topics Alcohol use: No ASSESSMENT/PLAN: 1. Urinary frequency - ICD9: 788.41, ICD10: R35.0 - UA DIP, URINE (POC) - URINE CULTURE - NITROFURANTOIN MONOHYDRATE AND MACROCRYSTAL 100 MG ORAL CAP If the culture comes back and requires a change please change medication at that time. Reviewed chart and medication. Prescription instructions reviewed with patient as applicable. Potential red flag symptoms discussed with the patient. Reviewed appropriate action plan to take if red flag symptoms occur. Patient agreeable to treatment plan. Antonieta Gonzalez APRN.[facility] 07-17-2022 History of Presen t illness Narrative CC: Patient presents with: Urinary Frequency: burning with urination x 1 week HPI Christie Redd Deandre PHD is a 52 year old female who presents with complaint of possible UTI. These symptoms have been present for 7 days. Associated symptoms: burning and frequency Denies: backpain, fever, chills, sweats, abdominal pain, and flank pain Treatments: nothing The ROS was otherwise negative. PMH, Medications, labs, allergies, and recent past visits with PCP were reviewed and updated as able. PHYSICAL EXAM: BP 102/60 Pulse 62 Temp 36.2 C (97.2 F) Resp 16 Wt 66.6 kg (146 lb 12.8 oz) LMP 06/04/2006 SpO2 97% General: Well appearing and alert CV: Regular rate and rhythm without obvious murmur Lungs: clear to auscultation bilaterally Back: straight and symmetric Abdomen: soft, nontender, nondistended PAST MEDICAL HISTORY Diagnosis Date PMH - PAST MEDICAL HISTORY OF excessive fatigue PAST SURGICAL HISTORY Procedure Laterality Date NONE ALLERGIES Patient has no known allergies. MEDICATIONS BIOTIN ORAL Take by mouth. CALCIUM CITRATE-VITAMIN D2 1,500 MG-200 UNIT TAB FAMILY HISTORY Problem Relation Age of Onset Heart Maternal Grandfather other (diabetes [Other]) Other uncle Breast Cancer Other grandmother other (lung cancer [Other]) Other grandfather Heart Father defective valve other (Other [Other]) Mother auto immune disease Social History Tobacco Use Smoking status: Never Passive exposure: Never Smokeless tobacco: Never Substance Use Topics Alcohol use: No ASSESSMENT/PLAN: 1. Urinary frequency - ICD9: 788.41, ICD10: R35.0 - UA DIP, URINE (POC) - URINE CULTURE - NITROFURANTOIN MONOHYDRATE & MACROCRYSTAL 100 MG ORAL CAP If the culture comes back and requires a change please change medication at that time. Reviewed chart and medication. Prescription instructions reviewed with patient as applicable. Potential red flag symptoms discussed with the patient. Reviewed appropriate action plan to take if red flag symptoms occur. Patient agreeable to treatment plan. Antonieta Gonzalez APRN.[facility] documented in this encounter [facility] 05-23-2022 Miscellaneous Notes Left a message for patient with results and recommendations.Cheli Rae LPN Left message for patient to return call. Karmen Rodriguez Phone call placed brief message to contact a nurse review results. Manuel Carlisle LPN Please call patient and let know their urine culture did not show an infection. if antibiotics are helping finish those, otherwise follow up with pcp with further symptoms and for the blood in urine. documented in this encounter [facility] 05-19-2022 Note HNO ID: [id number] Author: Melody Drew APRN.[facility]LYN Service: ? Author Type: Nurse Practitioner Type: Progress Notes Filed: 05/19/2022 3:30 PM Note Text: Subjective UTI Associated symptoms include frequency and urgency. Pertinent negatives include no chills, no nausea, no vomiting and no flank pain. Christie Redd Deandre PHD is a 52 year old female who presents with urinary frequency and burning x 1 day. Patient states that symptoms began yesterday, around 24 hours after intercourse. Patient denies flank pain, pelvic pain, fever, nausea or vomiting. Patient reports recent treatment of UTI with macrobid within the past 30 days. Review of Systems Constitutional: Negative for chills and fever. Gastrointestinal: Negative for abdominal pain, nausea and vomiting. Genitourinary: Positive for dysuria, frequency and urgency. Negative for flank pain. BP 110/80 Pulse 73 Temp 36 ?C (96.8 ?F) Resp 21 Wt 63.9 kg (140 lb 12.8 oz) LMP 06/04/2006 SpO2 99% PAST MEDICAL HISTORY Diagnosis Date PMH - PAST MEDICAL HISTORY OF excessive fatigue PAST SURGICAL HISTORY Procedure Laterality Date NONE ALLERGIES Patient has no known allergies. MEDICATIONS BIOTIN ORAL Take by mouth. CALCIUM CITRATE-VITAMIN D2 1,500 MG-200 UNIT TAB sulfamethoxazole-trimethoprim (BACTRIM DS) 800-160 mg per tablet Take 1 tablet by mouth twice daily for 7 days. FAMILY HISTORY Problem Relation Age of Onset Heart Maternal Grandfather other (diabetes [Other]) Other uncle Breast Cancer Other grandmother other (lung cancer [Other]) Other grandfather Heart Father defective valve other (Other [Other]) Mother auto immune disease Social History Tobacco Use Smoking status: Never Passive exposure: Never Smokeless tobacco: Never Substance Use Topics Alcohol use: No Objective Physical Exam Vitals and nursing note reviewed. Constitutional: Appearance: Normal appearance. Cardiovascular: Rate and Rhythm: Normal rate and regular rhythm. Pulmonary: Effort: Pulmonary effort is normal. Breath sounds: Normal breath sounds. Abdominal: Palpations: Abdomen is soft. Tenderness: There is no abdominal tenderness. There is no right CVA tenderness, left CVA tenderness or guarding. Skin: General: Skin is warm and dry. Neurological: Mental Status: She is alert. ASSESSMENT/PLAN: 1. Urinary frequency - ICD9: 788.41, ICD10: R35.0 (primary diagnosis) acute - Send urine for culture - Patient education for prevention given - UA DIP, URINE (POC) - URINE CULTURE 2. Acute cystitis with hematuria - ICD9: 595.0, ICD10: N30.01 - SULFAMETHOXAZOLE 800 MG-TRIMETHOPRIM 160 MG TABLET Cece Tate APRN Student TEACHING PROVIDER (Physician/PA/SANDBLASTER SUPERVISOR) NOTE OF PERSONAL INVOLVEMENT IN CARE: I have personally seen and examined the patient and performed the medical decision-making components. I have reviewed the Advanced Practice Registered Nurse (SANDBLASTER SUPERVISOR) Student's documentation and verified the findings in the note as written. Any additions or changes are noted in bold/italics. Signature: Melody Drew Date: 05/19/2022 Time: 3:24 PM [facility] 05-19-2022 History of Presen t illness Narrative Subjective UTI Associated symptoms include frequency and urgency. Pertinent negatives include no chills, no nausea, no vomiting and no flank pain. Christie Carrera PHD is a 52 year old female who presents with urinary frequency and burning x 1 day. Patient states that symptoms began yesterday, around 24 hours after intercourse. Patient denies flank pain, pelvic pain, fever, nausea or vomiting. Patient reports recent treatment of UTI with macrobid within the past 30 days. Review of Systems Constitutional: Negative for chills and fever. Gastrointestinal: Negative for abdominal pain, nausea and vomiting. Genitourinary: Positive for dysuria, frequency and urgency. Negative for flank pain. BP 110/80 Pulse 73 Temp 36 C (96.8 F) Resp 21 Wt 63.9 kg (140 lb 12.8 oz) LMP 06/04/2006 SpO2 99% PAST MEDICAL HISTORY Diagnosis Date PMH - PAST MEDICAL HISTORY OF excessive fatigue PAST SURGICAL HISTORY Procedure Laterality Date NONE ALLERGIES Patient has no known allergies. MEDICATIONS BIOTIN ORAL Take by mouth. CALCIUM CITRATE-VITAMIN D2 1,500 MG-200 UNIT TAB sulfamethoxazole-trimethoprim (BACTRIM DS) 800-160 mg per tablet Take 1 tablet by mouth twice daily for 7 days. FAMILY HISTORY Problem Relation Age of Onset Heart Maternal Grandfather other (diabetes [Other]) Other uncle Breast Cancer Other grandmother other (lung cancer [Other]) Other grandfather Heart Father defective valve other (Other [Other]) Mother auto immune disease Social History Tobacco Use Smoking status: Never Passive exposure: Never Smokeless tobacco: Never Substance Use Topics Alcohol use: No Objective Physical Exam Vitals and nursing note reviewed. Constitutional: Appearance: Normal appearance. Cardiovascular: Rate and Rhythm: Normal rate and regular rhythm. Pulmonary: Effort: Pulmonary effort is normal. Breath sounds: Normal breath sounds. Abdominal: Palpations: Abdomen is soft. Tenderness: There is no abdominal tenderness. There is no right CVA tenderness, left CVA tenderness or guarding. Skin: General: Skin is warm and dry. Neurological: Mental Status: She is alert. ASSESSMENT/PLAN: 1. Urinary frequency - ICD9: 788.41, ICD10: R35.0 (primary diagnosis) acute - Send urine for culture - Patient education for prevention given - UA DIP, URINE (POC) - URINE CULTURE 2. Acute cystitis with hematuria - ICD9: 595.0, ICD10: N30.01 - SULFAMETHOXAZOLE 800 MG-TRIMETHOPRIM 160 MG TABLET Cece Tate APRN Student TEACHING PROVIDER (Physician/PA/SANDBLASTER SUPERVISOR) NOTE OF PERSONAL INVOLVEMENT IN CARE: I have personally seen and examined the patient and performed the medical decision-making components. I have reviewed the Advanced Practice Registered Nurse (SANDBLASTER SUPERVISOR) Student's documentation and verified the findings in the note as written. Any additions or changes are noted in bold/italics. Signature: Melody Drew Date: 05/19/2022 Time: 3:24 PM documented in this encounter [facility] 05-19-2022 Instructions Cece Tate - 05/19/2022 12:20 PM EST ASSESSMENT/PLAN: 1. Urinary frequency - ICD9: 788.41, ICD10: R35.0 (primary diagnosis) acute - Send urine for culture - Patient education for prevention given - UA DIP, URINE (POC) - URINE CULTURE 2. Acute cystitis with hematuria - ICD9: 595.0, ICD10: N30.01 - SULFAMETHOXAZOLE 800 MG-TRIMETHOPRIM 160 MG TABLET Cece Tate APRN Student documented in this encounter [facility] documented in [facility] Diagnosis Urinary frequency- Primary documented [facility] Diagnosis Acute UTI- Primary Urinary tract infection, site not specified documented in this encounter [facility] Summary Purpose Family History No Family History Records Found Advance Directives No Advanced Directives Records Found Additional Source Comments Source Comments (unrecognize d section and content) In the event this informatio n is protected by the Federal Confidentiality of Alcohol and Drug Abuse Patient Records regulations: The Federal rules restrict any use of the information to criminally investigate or prosecute any alcohol or drug abuse patient.[facility] the event this information is protected by the Federal Confidentiality of Alcohol and Drug Abuse Patient Records regulations: The Federal rules restrict any use of the information to criminally investigate or prosecute any alcohol or drug abuse patient.[facility] the event this information is protected by the Federal Confidentiality of Alcohol and Drug Abuse Patient Records regulations: The Federal rules restrict any use of the information to criminally investigate or prosecute any alcohol or drug abuse patient.[facility] the event this information is protected by the Federal Confidentiality of Alcohol and Drug Abuse Patient Records regulations: The Federal rules restrict any use of the information to criminally investigate or prosecute any alcohol or drug abuse patient.[facility] the event this information is protected by the Federal Confidentiality of Alcohol and Drug Abuse Patient Records regulations: The Federal rules restrict any use of the information to criminally investigate or prosecute any alcohol or drug abuse patient.[facility] Reason for Visit (unrecogniz ed section and content) Reason Comments Results Reason Comments Urinary Frequency burning with urinati on x 1 week Reason Comments UTI Pt reported urinary frequency, burning x1 day. Reason Comments Results Urine Cx negative. Care Teams (unrecognized sec tion and content) Caster Helper Relationship Specialty Start Date End Date Tierra Valencia MD [address] [facility] [address] [place] [address] PCP - General Family Medicine 05/19/22 Caster Helper Relationship Specialty Start Date End Date Tierra Valencia MD [address] [facility] [address] [place] [address] PCP - General Family Medicine 05/19/22 Caster Helper Relationship Specialty Start Date End Date Tierra Valencia MD [address] [facility] [address] [place] [address] PCP - General Family Medicine 05/19/22 INFORMATION SOURCE (unrecogn ized section and content) FOR RECORDS PERTAINING TO PATIENTS WHO ARE OR HAVE BEEN ENROLLED IN A CHEMICAL DEPENDENCY/SUBSTANCEABUSE PROGRAM, SOME INFORMATION MAY BE OMITTED. This clinical summary was aggregated from multiple sources. Caution should be exercised in using it in the provision of clinical care. This summary normalizes information from multiple sources, and as a consequence, information in this document may materially change the coding, format and clinical context of patient data. In addition, data may be omitted in some cases. CLINICAL DECISIONS SHOULD BE BASED ON THE PRIMARY CLINICAL RECORDS. [employer] provides no warranty or guarantee of the accuracy or completeness of information in this document.
== END | disposition home or self-care (01) ==
PROVIDERS: PCP Family Medicine; Referring Provider Family Medicine; Visit Provider Family Medicine
DX: Z00.00 Encounter for general adult medical examination without abnormal findings (principal); Z78.0 Asymptomatic menopausal state
CPT/HCPCS: 77080

== ENCOUNTER 2023-08-31 05:31 | Day surgery (SDC) | payer OTHER, SELFPAY ==
--- OUTSIDE RECORDS SUMMARY | 2023-08-31 05:33 | XMS RPT_ITS | CCD ---
Author Name Unknown Address [address] [place] [address] Organization [facility] Care Team Providers Care Drug Safety Specialist Name Role Phone Tierra Valencia MD Primary [...] 98.01 [degF] Jessie Holt PA-C Work Phone: [facility] 09-24-2022 11:43-0400 Body weight 63.5 kg Jessie Athy PA-C Work Phone: [facility] 09-24-2022 11:43-0400 Diastolic blood pressure 62 mm[Hg] Jessie Athy PA-C Work Phone: [facility] 09-24-2022 11:43-0400 Heart rate 75 /min Jessie Athy PA-C Work Phone: [facility] 09-24-2022 11:43-0400 Respiratory rate 18 /min Jessie Athy PA-C Work Phone: [facility] 09-24-2022 11:43-0400 SaO2% (BldA) [Mass fraction] 99 % Jessie Athy PA-C Work Phone: [facility] 09-24-2022 11:43-0400 Systolic blood pressure 112 mm[Hg] Jessie Athy PA-C Work Phone: [facility] 07-17-2022 08:02-0500 Body temperature 97.2 [degF] Antonieta Gonzalez APRN.ROLL FILLER Work Phone: [facility] 07-17-2022 08:02-0500 Body weight 66.59 kg Antonieta Gonzalez APRN.ROLL FILLER Work Phone: [facility] 07-17-2022 08:02-0500 Diastolic blood pressure 60 mm[Hg] Antonieta Gonzalez APRN.ROLL FILLER Work Phone: [facility] 07-17-2022 08:02-0500 Heart rate 62 /min Antonieta Gonzalez APRN.ROLL FILLER Work Phone: [facility] 07-17-2022 08:02-0500 Respiratory rate 16 /min Antonieta Gonzalez APRN.ROLL FILLER Work Phone: [facility] 07-17-2022 08:02-0500 SaO2% (BldA) [Mass fraction] 97 % Antonieta Gonzalez APRN.ROLL FILLER Work Phone: [facility] 07-17-2022 08:02-0500 Systolic blood pressure 102 mm[Hg] Antonieta Gonzalez APRN.ROLL FILLER Work Phone: [facility] 05-19-2022 12:07-0500 Body temperature 96.8 [degF] Melody Praisler-Wood RADIO MACHINIST.ROLL FILLER Work Phone: [facility] 05-19-2022 12:07-0500 Body weight 63.87 kg Melody Praisler-Wood RADIO MACHINIST.ROLL FILLER Work Phone: [facility] 05-19-2022 12:07-0500 Diastolic blood pressure 80 mm[Hg] Melody Praisler-Wood RADIO MACHINIST.ROLL FILLER Work Phone: [facility] 05-19-2022 12:07-0500 Heart rate 73 /min Melody Praisler-Wood RADIO MACHINIST.ROLL FILLER Work Phone: [facility] 05-19-2022 12:07-0500 Respiratory rate 21 /min Melody Praisler-Wood RADIO MACHINIST.ROLL FILLER Work Phone: [facility] 05-19-2022 12:07-0500 SaO2% (BldA) [Mass fraction] 99 % Melody Praisler-Wood RADIO MACHINIST.ROLL FILLER Work Phone: [facility] 05-19-2022 12:07-0500 Systolic blood pressure 110 mm[Hg] Melody Praisler-Wood RADIO MACHINIST.ROLL FILLER Work Phone: [facility] Encounters Encounter Date Encounter Type Care Provider Facility Start: 09-25-2022 Telephone encounter Terrence Pool MD Work Phone: [facility] Procedures Date Procedure Procedure Detail Performing Clinician Start: 09-24-2022 Urnls dip stick/tabl et rgnt auto w/o microscopy [facility] Provider Start: 07-17-2022 Urnls dip stick/tabl et rgnt auto w/o microscopy Antonieta Gonzalez APRN.ROLL FILLER Work Phone: Start: 05-19-2022 Urnls dip stick/tabl et rgnt auto w/o microscopy Jessie Holt PA-C Work Phone: Plan of Treatment Date Care Activity Detail Author Start: 07-09-2022 DEPRESSION ASSESSMENT DEPRESSION ASSESSMENT [facility] Start: 08-05-2021 COVID-19 VACCINE (4 - Booster for Pfizer series) COVID-19 VACCINE (4 - Booster for Pfizer series) [facility] Start: 07-09-2021 DEPRESSION ASSESSMENT DEPRESSION ASSESSMENT [facility] Start: 02-12-2020 SHINGRIX VACCINE (1 of 2) SHINGRIX VACCINE (1 of 2) [facility] Start: 2015 COLOGUARD (FIT-DNA) COLOGUARD (FIT-DNA) [facility] Start: 2015 Colonoscopy COLONOSCOPY [facility] Start: 2015 COLORECTAL CANCER SCREENING COLORECTAL CANCER SCREENING [facility] Start: [address] COLONOGRAPHY [facility] Start: 2015 DIABETES SCREEN DIABETES SCREEN [facility] Start: 2015 FECAL OCCULT BLOOD FECAL OCCULT BLOOD [facility] Start: 2015 LIPID SCREEN LIPID SCREEN [facility] Start: 2015 SIGMOIDOSCOPY SIGMOIDOSCOPY [facility] Start: 05-24-2010 HPV TESTING HPV TESTING [facility] Start: 05-24-2010 PAP TESTING PAP TESTING [facility] Start: 2010 Mammography MAMMOGRAM [facility] Start: 1989 Urine microalbumin profile DTAP,TDAP,TD (1 - Tdap) [facility] Start: 02-12-1988 HEPATITIS C SCREENING HEPATITIS C SCREENING [facility] Start: 02-12-1988 HIV SCREENING HIV SCREENING [facility] Start: 1970 HEPATITIS B (1 of 3 - 3-dose series) HEPATITIS B (1 of 3 - 3-dose series) [facility] Bacteria identified in Urine by Culture URINE CULTURE Microbiology Routine Urinary frequency 05/19/2022 1:14 PM EST [facility] Work Phone: Bacteria identified in Urine by Culture URINE CULTURE Microbiology Routine Urinary frequency Ordered: 07/17/[address] [facility] Work Phone: Immunizations Immunization Date Immunization Notes Care Provider Carlos Eduardo worthy 05-25-2017 influenza, injectabl e, quadrivalent, contains preservative Melody Drew APRN.CNP Work Phone: [facility] Work Phone: 04-26-2016 influenza, injectabl e, quadrivalent, contains preservative Melodyalicia Drew APRN.[facility] Work Phone: [facility] 04-23-2009 influenza virus vaccine, live, attenuated, for intranasal use Melody Drew APRN.ROLL FILLER Work Phone: [facility] 05-23-2007 influenza virus vaccine, unspecified formulation Meldoyalicia Drew APRN.ROLL FILLER Work Phone: [facility] Work Phone: Payers Date Payer Category Payer Unknown [id number] 2003 Unknown [id number] Social History Date Type Detail Facility Start: 05-19-2022 Tobacco smoking status NHIS Never smoked tobacco [facility] Start: 05-19-2022 Tobacco use and exposure Smokeless tobacco non-user [facility] Start: 05-19-2022 End: 09-24-2022 Alcohol intake Current non-drinker of alcohol (finding) [facility] Start: 1970 Sex Assigned At [facility] NEGATED: Highlighted rowStart: NINF History of tobacco use Passive smoker [facility] Clinical Notes 05-19-2022 to 09-27-2022 Telephone [...] and follow up with PCP, urology, or MANAGER FURNITURE if symptoms persist. documented in this encounter [facility] 09-24-2022 Note HNO ID: [id number] Author: Jessie Holt PA-C Service: ? Author Type: Physician Customer Sales Distributor Type: Progress Notes Filed: 09/24/2022 12:56 PM Note Text: This note was created using [employer]. Subjective Christie Carrera PHD is a 52 [...] FLUCONAZOLE 150 MG TABLET Jessie Holt PA-C [facility] 09-24-2022 Miscellaneous Notes Addended by: MANUEL CARLISLE LPN on: 09/24/2022 01:44 PM Modules accepted: Orders documented in this encounter [facility] 09-24-2022 History of Presen t illness Narrative This note was created using [employer]. Subjective Christie Redd Deandre PHD is a [...] Jessie Holt PA-C documented in this encounter [facility] 07-17-2022 Note HNO ID: [id number] Author: Antonieta Gonzalez APRN.ROLL FILLER Service: ? Author Type: Nurse Practitioner Type: [...] Patient agreeable to treatment plan. Antonieta Gonzalez APRN.[facility] 07-17-2022 History of Presen t illness Narrative [...] Antonieta Gonzalez APRN.DARLYN documented in this encounter [facility] 05-23-2022 Miscellaneous Notes Left a message [...] blood in urine. documented in this encounter [facility] 05-19-2022 Note HNO ID: [id number] Author: Melody Drew APRN.DARLYN Service: ? Author [...] TABLET Cece Tate APRN Student TEACHING PROVIDER (Physician/PA/RADIO MACHINIST) NOTE OF PERSONAL INVOLVEMENT IN CARE: I have personally seen and examined the patient and performed the medical decision-making components. I have reviewed the Advanced Practice Registered Nurse (RADIO MACHINIST) Student's documentation and verified the findings in the note as written. Any additions or changes are noted in bold/italics. Signature: Melody Drew Date: 05/19/2022 Time: 3:24 PM [facility] 05-19-2022 History of Presen t illness Narrative [...] TABLET Cece Tate APRN Student TEACHING PROVIDER (Physician/PA/RADIO MACHINIST) NOTE OF PERSONAL INVOLVEMENT IN CARE: I have personally seen and examined the patient and performed the medical decision-making components. I have reviewed the Advanced Practice Registered Nurse (RADIO MACHINIST) Student's documentation and verified the findings in the note as written. Any additions or changes are noted in bold/italics. Signature: Melody Drew Date: 05/19/2022 Time: 3:24 PM documented in this encounter [facility] 05-19-2022 Instructions Cece Tate - 05/19/2022 [...] Tate APRN Student documented in this encounter [facility] Diagnosis Urinary frequency- Primary [facility] Diagnosis Acute UTI- Primary Urinary tract infection, site not specified documented in this encounter [facility] Summary Purpose Family History No Family [...] or prosecute any alcohol or drug abuse patient.[facility] the event this information is protected by the Federal Confidentiality of Alcohol and Drug Abuse Patient Records regulations: The Federal rules restrict any use of the information to criminally investigate or prosecute any alcohol or drug abuse patient.[facility] the event this information is protected by the Federal Confidentiality of Alcohol and Drug Abuse Patient Records regulations: The Federal rules restrict any use of the information to criminally investigate or prosecute any alcohol or drug abuse patient.[facility] the event this information is protected by the Federal Confidentiality of Alcohol and Drug Abuse Patient Records regulations: The Federal rules restrict any use of the information to criminally investigate or prosecute any alcohol or drug abuse patient.[facility] the event this information is protected by the Federal Confidentiality of Alcohol and Drug Abuse Patient Records regulations: The Federal rules restrict any use of the information to criminally investigate or prosecute any alcohol or drug abuse patient.[facility] Reason for Visit (unrecogniz ed section and content) Reason Comments Results Reason Comments Urinary Frequency burning with urinati on x 1 week Reason Comments UTI Pt reported urinary frequency, burning x1 day. Reason Comments Results Urine Cx negative. Care Teams (unrecognized sec tion and content) Drug Safety Specialist Relationship Specialty Start Date End Date Tierra Valencia MD [address] [facility] [address] [place] [address] PCP - General Family Medicine 05/19/22 Drug Safety Specialist Relationship Specialty Start Date End Date Tierra Valencia MD [address] [facility] [address] [place] [address] PCP - General Family Medicine 05/19/22 Drug Safety Specialist Relationship Specialty Start Date End Date Tierra Valencia MD [address] [facility] [address] [place] [address] PCP - General Family Medicine 05/19/22 INFORMATION [...] BE BASED ON THE PRIMARY CLINICAL RECORDS. [employer] provides no warranty or guarantee of the accuracy or completeness of information in this document.
[2023-08-31 05:59] VITALS: BP 110/78; PULSE 64; RESP 16; TEMP 36.1; O2SAT 100; BMI 20.3
[2023-08-31] MEDS: Lactated Ringers 1,000 ML 15 ML IV (06:10)
--- NOTE | 2023-08-31 06:23 | PCM.HP.BLA ---
History and Physical Date of Admission: 08/31/23 Visit Reasons: POSITIVE COLOGUARD Chief Complaint: positive cologuard Is patient in pain?: No Allergies No Known Allergies Allergy (Unverified 08/14/23 10:05) Medications cephalexin 250 mg capsule 250 mg PO QDAY #30 caps 06/25/23 [Rx Confirmed 08/14/23] biotin 5 mg tablet 5 mg PO DAILY 08/14/23 [History Confirmed 08/14/23] cholecalciferol (vitamin D3) 25 mcg (1,000 unit) capsule 25 mcg PO DAILY 08/14/23 [History Confirmed 08/14/23] PFSH Family History Grandmother Breast cancerGrandfather Lung cancerMother Autoimmune diseaseFather CVA (cerebral vascular accident) Social History Smoking Status: Never smoker alcohol intake: current details: social caffeine: Yes what type of physical activity do you participate in: walking, running and yoga seatbelt use: always do you feel safe at home: Yes additional 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 She presents today because she has had a Cologuard exam that is turned positive. She has never had a colonoscopy. There is no family history of colon polyps or colon cancer. She has had concerns about a colonoscopy in the past as an aunt had a perforation which resulted in a permanent colostomy. She has no GERD symptoms. Is not on any reflux medications. She had 1 episode some rectal bleeding. She otherwise enjoys extraordinarily good health. She routinely runs and does yoga and lifts weights. 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 Laboratory notable on May 17, 2023 for a white blood cell count of 6.4 with hemoglobin 13.3 hematocrit 41.9 platelet count 237,000 with a BUN of 20 and a creatinine of 0.93. Cholesterol slightly elevated at 226 with an LDL of 95 ROS Gastro Gastrointestinal: Yes blood in stool and Yes hemorrhoids Exam Const General: cooperative, healthy appearing, comfortable and no acute distress HENMT Head: normal to inspection Eyes General: appearance normal, both eyes and all related structures Chest Chest palpation & inspection: normal inspection of the chest Resp Effort & Inspection: normal respiratory effort Auscultation: clear to auscultation bilaterally Cardio Rate: regular rate Rhythm: regular rhythm GI Inspection: normal to inspection Palpation: soft and no hepatosplenomegaly Musc Cervical Spine: normal cervical lordosis Skin General: no rashes or lesions noted Neuro General: patient alert, patient awake and patient oriented x3 Extrem General: no calf tenderness Psych Appearance: grossly normal Assessment and Plan Assessment and Plan (1) Positive colorectal cancer screening using Cologuard test: Status: Acute Plan: 53-year-old female. She has not had a previous colonoscopy. Cologuard positive. I explained to the patient that this does test both for DNA as well as blood. I do propose for her a combined esophagogastroduodenoscopy with possible biopsy and colonoscopy with possible biopsy or polypectomy as indicated. She is aware of technique, benefit, risk, alternatives. We will use monitored anesthesia care. We will schedule and proceed at her discretion. I appreciate the opportunity of assisting with her surgical care. Copy: Dr. Bora Paul M.D., F.A.C.S I have examined the patient and the H&P has been reviewed. There are no clinical changes since date of exam. Giorgio Paul M.D., F.A.C.S.
--- NOTE | 2023-08-31 06:45 | IMM_PTH ---
PATHOLOGY RESULTS PATIENT: JENIFER GAN LOC: EN U#:[id number] AGE/SX: 53/F ROOM: RE08/31/[address]: Dr. Giorgio Paul MD : 1970 BED: DIS: 08/31/2023 SPEC #: [id number] RECD: 08/31/23 13:24 STATUS: JJ RETeto #: [id number] NIK: 08/31/23 06:[address]: Giorgio Paul DEPT: IMMUNOHISTOCHEMISTRY RECD BY: Zayda Ruiz ENTERED: 08/31/23 13:25 SP TYPE: IMMUNO OTHR DR: Dr. Bora Quintanilla MD Tissues: Stomach, NOS Procedures: H Pylori (initial) PHYSICIAN & INSTITUTION [place] [address] SPECIMEN INFORMATION: Tissue Source: A - Antrum Clinical Info: Positive Cologuard test Specimen Number: [id number] CPT code: 39410 METHODOLOGY: Deparaffinized sections of prefer/formalin-fixed tissue or PAP/DQ stained slides are incubated with monoclonal/polyclonal antibodies/oligonucleotide probes. Localization is made via biotin free immunoperoxidase method. Appropriate controls are performed and reacted as expected. Results on target cell population are indicated in the following table: RESULTS: ANTIBODY / CLONE RESULT Block A H Pylori (polyclonal) negative These tests were developed and their performance characteristics determined by [facility]. They may not have been cleared or approved by the U.S. Food and Drug Administration. The FDA has determined that such clearance or approval is not necessary. The above immunohistochemical/dualISH markers are ordered and reviewed by the Pathologist. INTERPRETATION: A. Antrum, biopsy: Negative for Helicobacter pylori organisms. SJ:monica 09/03/2023
--- NOTE | 2023-08-31 06:45 | COLBX_PTH ---
PATHOLOGY RESULTS PATIENT: JENIFER GAN LOC: EN U#:[id number] AGE/SX: 53/F ROOM: RE08/31/[address]: Dr. Giorgio Paul MD : 1970 BED: DIS: 08/31/2023 SPEC #: [id number] RECD: 08/31/23 10:09 STATUS: JJ TALHA #: [id number] NIK: 08/31/23 06:[address]: Giorgio Paul DEPT: SURGICAL PATHOLOGY RECD BY: Heather Hernadez ENTERED: 08/31/23 10:09 SP TYPE: COLON BX OTHR DR: Dr. Bora Quintanilla MD Tissues: Gastric mucous membrane Esophageal mucous membrane Esophageal mucous membrane Procedures: Surgery Specimen Level IV HEADER OPERATION: Colonoscopy, EGD with biopsy PRE-OP DIAGNOSIS: Positive Cologuard test TISSUE SUBMITTED: A - Antrum biopsy for H. pylori and pathology, B - Distal esophagus biopsy, C - Mid esophagus biopsy MICROSCOPIC DIAGNOSIS A. Antrum, biopsy: Mild gastritis. See microscopic description and comment. B. Distal esophagus, biopsy: A fragment of squamous epithelium with minimal chronic inflammation. C. Mid esophagus, biopsy: A fragment of benign squamous epithelium. SJ:rg 09/03/2023 COMMENT A. The results of immunohistochemistry for Helicobacter pylori will be reported separately ([id number]). MICROSCOPIC DESCRIPTION Slides are reviewed. A. The specimen shows fragments of gastric mucosa with chronic inflammatory cell infiltrates in the lamina propria consisting of lymphocytes and plasma cells, consistent with mild chronic gastritis. GROSS DESCRIPTION A - Received in fixative is one container labeled with the patient's name and designated antrum biopsy. The specimen consists of two irregular fragments of light ojeda soft tissue that in aggregate measure 0.7 x 0.3 x 0.1 cm. The specimen is totally submitted in one cassette. B - Received in fixative is one container labeled with the patient's name and designated distal esophagus biopsy. The specimen consists of one irregular fragment of light ojeda soft tissue that measures 0.8 x 0.3 x 0.1 cm. The specimen is totally submitted in one cassette. C - Received in fixative is one container labeled with the patient's name and designated mid esophagus biopsy. The specimen consists of one irregular fragment of light ojeda soft tissue that measures 0.4 x 0.3 x 0.1 cm. The specimen is totally submitted in one cassette. / SJ:monica 08/31/2023 TC:3 CPT: 38858 x3
[2023-08-31 07:30] VITALS: BP 110/78; BP 90/61; PULSE 59; RESP 16; TEMP 36.3; O2SAT 100
--- NOTE | 2023-08-31 07:32 | OP.EGD_ITS ---
Patient Name: Christie Carrera Procedure Date: 08/31/2023 6:35 AM Date of : 1970 Age: 53 Procedure: Upper GI endoscopy Indications: Cologuard positive Providers: Giorgio Paul MD Medicines: See the Anesthesia note for documentation of the administered medications Complications: No immediate complications. Procedure: Pre-Anesthesia Assessment: - Prior to the procedure, a History and Physical was performed, and patient medications and allergies were reviewed. The patient's tolerance of previous anesthesia was also reviewed. The risks and benefits of the procedure and the sedation options and risks were discussed with the patient. All questions were answered, and informed consent was obtained. Prior Anticoagulants: The patient has taken no anticoagulant or antiplatelet agents. ASA Grade Assessment: I - A normal, healthy patient. After reviewing the risks and benefits, the patient was deemed in satisfactory condition to undergo the procedure. After obtaining informed consent, the endoscope was passed under direct vision. Throughout the procedure, the patient's blood pressure, pulse, and oxygen saturations were monitored continuously. The Endoscope was introduced through the mouth, and advanced to the second part of duodenum. The upper GI endoscopy was accomplished without difficulty. The patient tolerated the procedure well. Scope In: 6:47:57 AM Scope Out: 6:53:15 AM Total Procedure Duration Time 0 hours 5 minutes 18 seconds Findings: The Z-line was regular and was found 44 cm from the incisors. Biopsies were taken with a cold forceps for histology. The middle third of the esophagus was normal. Biopsies were taken with a cold forceps for histology. Diffuse mildly erythematous mucosa without bleeding was found in the gastric antrum. Biopsies were taken with a cold forceps for histology. The examined duodenum was normal. Impression: - Z-line regular, 44 cm from the incisors. Biopsied. - Normal middle third of esophagus. Biopsied. - Erythematous mucosa in the antrum. Biopsied. - Normal examined duodenum. Recommendation: - Discharge patient to home. - Resume previous diet. - Continue present medications. - Telephone my office for pathology results in 1 week Findings are all very mild.. Procedure Code(s): --- Professional --- 24540, Esophagogastroduodenoscopy, flexible, transoral; with biopsy, single or multiple Diagnosis Code(s): --- Professional --- K31.89, Other diseases of stomach and duodenum CPT copyright 2021 [employer]. All rights reserved. The codes documented in this report are preliminary and upon dietitian therapeutic review may be revised to meet current compliance requirements. Giorgio Paul MD 08/31/2023 7:30:42 AM This report has been signed electronically. Number of Addenda: 0 Note Initiated On: 08/31/2023 6:35 AM
--- NOTE | 2023-08-31 07:32 | OP.CCLET_ITS ---
08/31/2023 Noble Quintanilla [address] [place] [address] Re : Upper GI endoscopy procedure for Christie Carrera Dear Dr. Quintanilla This procedure was performed on Thursday, August 31, 2023. My impressions and recommendations are as follows: Impressions : - Z-line regular, 44 cm from the incisors. Biopsied. - Normal middle third of esophagus. Biopsied. - Erythematous mucosa in the antrum. Biopsied. - Normal examined duodenum. Recommendations : - Discharge patient to home. - Resume previous diet. - Continue present medications. - Telephone my office for pathology results in 1 week Findings are all very mild.. My findings are described in the full procedure note, which is enclosed. If I can be of further assistance, please feel free to contact me at Doctor phone number(s): Work: . Sincerely, Giorgio Paul MD 08/31/2023 7:30:42 AM This report has been signed electronically.
--- NOTE | 2023-08-31 07:34 | OP.CCLET_ITS ---
08/31/2023 Noble Quintanilla [address] [place] [address] Re : Colonoscopy procedure for Christie Carrera Dear Dr. Quintanilla This procedure was performed on Thursday, August 31, 2023. My impressions and recommendations are as follows: Impressions : - Tortuous colon. - The examination was otherwise normal. - No specimens collected. Recommendations : - Discharge patient to home. - Resume previous diet. - Continue present medications. - Repeat colonoscopy in 10 years for screening purposes. My findings are described in the full procedure note, which is enclosed. If I can be of further assistance, please feel free to contact me at Doctor phone number(s): Work: . Sincerely, Giorgio Paul MD 08/31/2023 7:33:34 AM This report has been signed electronically.
--- NOTE | 2023-08-31 07:34 | OP.COLON_ITS ---
Patient Name: Christie Carrera Procedure Date: 08/31/2023 6:55 AM Date of : 1970 Age: 53 Procedure: Colonoscopy Indications: Cologuard positive Providers: Giorgio Paul MD Medicines: See the Anesthesia note for documentation of the administered medications Patient Profile: Last Colonoscopy: none. The patient's first colonoscopy is today. Complications: No immediate complications. Procedure: Pre-Anesthesia Assessment: - Prior to the procedure, a History and Physical was performed, and patient medications and allergies were reviewed. The patient's tolerance of previous anesthesia was also reviewed. The risks and benefits of the procedure and the sedation options and risks were discussed with the patient. All questions were answered, and informed consent was obtained. Prior Anticoagulants: The patient has taken no anticoagulant or antiplatelet agents. ASA Grade Assessment: I - A normal, healthy patient. After reviewing the risks and benefits, the patient was deemed in satisfactory condition to undergo the procedure. After I obtained informed consent, the scope was passed under direct vision. Throughout the procedure, the patient's blood pressure, pulse, and oxygen saturations were monitored continuously. The adult colonoscope was introduced through the anus and advanced to the cecum, identified by appendiceal orifice and ileocecal valve. The colonoscopy was unusually difficult due to a redundant colon and a tortuous colon. The patient tolerated the procedure well. The quality of the bowel preparation was good. The ileocecal valve and the appendiceal orifice were photographed. Scope In: 6:56:46 AM Scope Withdrawal Time 0 hours 10 minutes 36 seconds Scope Out: 7:25:22 AM Total Procedure Duration Time 0 hours 28 minutes 36 seconds Findings: The perianal and digital rectal examinations were normal. The colon (entire examined portion) was significantly tortuous. Advancing the scope required changing the patient to a supine position and using manual pressure. The exam was otherwise without abnormality. Impression: - Tortuous colon. - The examination was otherwise normal. - No specimens collected. Recommendation: - Discharge patient to home. - Resume previous diet. - Continue present medications. - Repeat colonoscopy in 10 years for screening purposes. Procedure Code(s): --- Professional --- 43991, Colonoscopy, flexible; diagnostic, including collection of specimen(s) by brushing or washing, when performed (separate procedure) Diagnosis Code(s): --- Professional --- Q43.8, Other specified congenital malformations of intestine CPT copyright 2021 [employer]. All rights reserved. The codes documented in this report are preliminary and upon car cleaner review may be revised to meet current compliance requirements. Giorgio Paul MD 08/31/2023 7:33:34 AM This report has been signed electronically. Number of Addenda: 0 Note Initiated On: 08/31/2023 6:55 AM
[2023-08-31 07:35] VITALS: BP 110/78; BP 91/69; PULSE 60; RESP 16; O2SAT 100
[2023-08-31 07:40] VITALS: BP 110/78; BP 92/62; PULSE 58; RESP 16; O2SAT 100
[2023-08-31 07:45] VITALS: BP 110/78; BP 99/68; PULSE 56; RESP 16; TEMP 36.3; O2SAT 100
[2023-08-31 08:04] VITALS: BP 110/78
== END 2023-08-31 08:20 | disposition home or self-care (01) ==
LOC: EN 05:43 → AC 05:45
PROVIDERS: PCP Family Medicine; Referring Provider Family Medicine; Visit Provider Surgery
PROC: 0DJD8ZZ Inspection of Lower Intestinal Tract, Via Natural or Artificial Opening Endoscopic (ICD-10-PCS; CPT 45378; principal; 2023-08-31 06:40)
DX: R19.5 Other fecal abnormalities (principal); K31.89 Other diseases of stomach and duodenum; Q43.8 Other specified congenital malformations of intestine
CPT/HCPCS: 43239; 45378; 88305; 88342; J7120; J2405

== ENCOUNTER → 2024-01-21 | Outpatient (CLI) | payer OTHER, SELFPAY ==
--- NOTE | 2024-01-21 07:10 | BI_ITS ---
MAMMOGRAPHY - BILATERAL SCREENING REASON FOR EXAM: Female, 53 years old. Routine annual screening examination. PERTINENT HISTORY: Grandmother with breast cancer. TECHNIQUE: Digital bilateral breast haroldo (3D mammographic acquisition) in the CC and MLO projections. 2-D mediolateral oblique (MLO) and craniocaudad (CC) views of both breasts were obtained. CAD: Full Field Digital Mammography with Computer Added Detection was performed. COMPARISON: Comparison is made with prior study of October 06, 2022 and September 22, 2020. FINDINGS: Breast Composition: The breasts are extremely dense, which lowers the sensitivity of mammography. There are no dominant masses or suspicious calcifications. No other significant abnormalities are identified. There has been no significant change since the prior study. BI/SCRN MAMM (CAD)W/HAROLDO BILAT IMPRESSION: Stable bilateral screening mammogram. Yearly follow-up mammogram recommended. (A) ASSESSMENT CATEGORY: BIRADS Category 1: Negative. A letter regarding these results will be sent to the patient by the facility within 30 days. Approximately 10% of breast cancers are not detected by mammography. A normal mammogram should not delay biopsy of a clinically suspicious abnormality. [id number] Electronically Signed: Rafael Mueller MD at 9:09 EDT ,
== END | disposition home or self-care (01) ==
LOC: OPBI 07:10
PROVIDERS: PCP Family Medicine; Referring Provider Obstetrics & Gynecology; Visit Provider Obstetrics & Gynecology
DX: Z12.31 Encounter for screening mammogram for malignant neoplasm of breast (principal); Z80.3 Family history of malignant neoplasm of breast
CPT/HCPCS: 77063; 77067

== ENCOUNTER → 2024-02-12 | Outpatient (CLI) | payer OTHER, SELFPAY ==
[2024-02-12 07:05] LABS: Ionized Calcium 5.03 mg/dL (4.36-5.20)
[2024-02-12 07:30] LABS: Magnesium 2.6 mg/dL (1.6-2.6)
[2024-02-16 10:41] LABS: Deamidated Gliadin IgA 3 units (0-19); Deamidated Gliadin IgG 2 units (0-19); Endomysial Antibody IgA Negative (Negative); Immunoglobulin A 143 mg/dL (87-352); VITAMIN B6 33.5 ug/L (3.4-65.2); t-Transglutaminase IgA <2 U/mL (0-3)
== END | disposition home or self-care (01) ==
LOC: LAB 06:34
PROVIDERS: PCP Family Medicine; Referring Provider Family Medicine; Visit Provider Family Medicine
DX: E55.9 Vitamin D deficiency, unspecified (principal); Z83.79 Family history of other diseases of the digestive system
CPT/HCPCS: 36415; 82330; 82784; 83516; 83735; 83970; 84207; 86255